=== PATIENT | male | born 1960 | race Caucasian/White ===

== ENCOUNTER 2017-12-13 07:24 | Emergency (ER) | payer OTHER ==
[2017-12-13 07:37] VITALS: BP 124/83
--- NOTE | 2017-12-13 08:16 | UC ---
Caesar Barker Gabriel, scribed for Phoebe Ray MD on 12/13/17 at 0748 . Lower Extremity/Ankle HPI - HPI Summary HPI Summary: This patient is a 57 year old M presenting to [facility] accompanied by his with a chief complaint of right sided dorsal foot pain that began 2 days ago and has gotten worse since. The patient rates the pain 8/10 in severity. Symptoms aggravated by even the slightest touch. Symptoms alleviated by nothing , pt has taken Tylenol with no relief. Pt reports mild swelling. Patient denies injury. 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 Takes ASA daily. Patients medication reviewed this visit. - History of Current Complaint Chief Complaint: UCLowerExtremity Stated Complaint: FOOT PAIN Hx Obtained From: Patient Onset/Duration: Still Present Severity Initially: Moderate Severity Currently: Moderate Pain Intensity: 8 Pain Scale Used: 0-10 Numeric Aggravating Factor(s): Other - any touch Alleviating Factor(s): Nothing Able to Bear Weight: Yes - Allergies/Home Medications Allergies/Adverse Reactions: Allergies Allergy/AdvReac Type Severity Reaction Status Date / Time No Known Allergies Allergy Verified 12/13/17 07:35 PMH/Surg Hx/FS Hx/Imm Hx Endocrine History: Diabetes Cardiovascular History: Cardiac Disease, Hypertension - Surgical History Surgical History: Yes Surgery Procedure, Year, and Place: STENT PLACED, CARPAL TUNNEL, WISDOM TEETH EXTRACTION - Family History Known Family History: Positive: Cardiac Disease, Diabetes - Social History Occupation: Employed Full-time Lives: With Family Alcohol Use: Weekly Substance Use Type: None Smoking Status (MU): Never Smoked Tobacco Review of Systems Constitutional: Negative - injury Skin: Other - mild swelling Musculoskeletal: Other: - dorsal right foot pain All Other Systems Reviewed And Are Negative: Yes Physical Exam Triage Information Reviewed: Yes Appearance: Well-Appearing, Well-Nourished, Pain Distress Vital Signs: Initial Vital Signs Temp 96.4 F 12/13/17 07:32 Pulse 64 12/13/17 07:32 Resp 18 12/13/17 07:32 BP 124/83 12/13/17 07:32 Pulse Ox 99 12/13/17 07:32 Vital Signs Reviewed: Yes Eye Exam: Normal Eyes: Positive: Conjunctiva Clear ENT Exam: Normal ENT: Positive: Normal ENT inspection, Hearing grossly normal, Pharynx normal, TMs normal Dental Exam: Normal Neck exam: Normal Neck: Positive: Supple Respiratory Exam: Normal Respiratory: Positive: Chest non-tender, Lungs clear, Normal breath sounds, No respiratory distress Cardiovascular Exam: Normal Cardiovascular: Positive: RRR, No Murmur, Pulses Normal, Other: - 2+ dp, pt CBT < 2 sec Abdominal Exam: Normal Abdomen Description: Positive: Nontender Bowel Sounds: Positive: Present Musculoskeletal: Positive: Other: - Pt wtih erythema, discomfort to gentle palp , pain with movement left 1st MSP No ankle, knee pain + flex/ext Neurological Exam: Normal Neurological: Positive: Alert Psychological Exam: Normal Skin: Positive: Other - erthema 1st MTP Lower Extremity Course/Dx - Course Course Of Treatment: Pt with progressive erythema and tenderness to left 1stMTP. Pain with gentle palp and movement. exam c/w gout. Will start colchicine, pred, indomenthavin. d/w pt precautions for po with med, increased risk of GIB. crutches. f/u with PCP. pt comfortable and in agreement with plan - Differential Dx/Diagnosis Provider Diagnoses: suspected gout flare 1st MTP Discharge - Sign-Out/Discharge Documenting (check all that apply): Discharge/Admit/Transfer - Discharge Plan Condition: Stable Disposition: HOME Prescriptions: Colchicine* [Colcrys*] 0.6 mg PO DAILY #10 tab Indomethacin CAP* [Indocin CAP*] 50 mg PO BID #14 cap methylPREDNISolone [Medrol Dosepak 4 MG*] 0 mg PO .SEE SALLIE INSTRUCTION #1 tab Patient Education Materials: Gout (ED) Forms: *Work Release Referrals: Grant Del Castillo MD [Primary Care Provider] - Additional Instructions: The doctor that evaluated you today thinks your symptoms are related to gout. You have blood work drawn today. This will take 1-2 days to come back. If there are any concerning finding, you will receive a call from a care front desk team member It is recommended you take medications as prescribed. It is VERY IMPORTANT you take all of these medications with food. They can be irritating to the stomach and can cause bleeding It is recommended you do not drink alcohol while taking these medications Use crutches if you are walking with a limp so you don't develop knee and hip pain from walking with limp contact your doctor today to schedule a follow-up appointment for next week contact your doctor or return with any questions or concerns - Billing Disposition and Condition Condition: STABLE Disposition: HOME The documentation as recorded by the Caesar garcia Gabriel accurately reflects the service I personally performed and the decisions made by me, Phoebe Ray MD.
[2017-12-13 11:10] LABS: EGFR Non-African American 98.2 (>60); Uric Acid 7.3 mg/dL (4.4-7.6)
== END 2017-12-13 08:30 | disposition home or self-care (01) ==
LOC: UCEAST 07:24
DX: M79.671 Pain in right foot (principal); M79.89 Other specified soft tissue disorders; E11.9 Type 2 diabetes mellitus without complications; Z79.84 Long term (current) use of oral hypoglycemic drugs; I11.9 Hypertensive heart disease without heart failure; Z95.5 Presence of coronary angioplasty implant and graft; Z79.82 Long term (current) use of aspirin
CPT/HCPCS: 36415; 80048; 84550; 99212; G0463

== ENCOUNTER 2018-07-02 07:08 | Emergency (ER) | payer OTHER ==
[2018-07-02] MEDS ORDERED: Fluorescein Sodium TOPICAL* 1 MG TEST STRIP OPHTHALMIC ONE (07:17)
[2018-07-02] MEDS ORDERED: Tetracaine 0.5% OPTH.SOL 15ML* BTL RIGHT EYE ONE (07:17)
[2018-07-02] MEDS ORDERED: Tetracaine 0.5% OPTH.SOL 4 ML* 1 DROP BTL ONE (07:23)
--- NOTE | 2018-07-02 07:43 | UC ---
Eye Complaint HPI - HPI Summary HPI Summary: 57-year-old male comes in with a chief complaint of right eye pain. Yesterday morning he gets stuck in the right eye with a stick. Had pain right away did not see any foreign body in the eye. This morning when woke up his eye was still hurting him. The light does bother the eye. When he does open the eyelid he said his vision is not greatly diminished. He does not wear glasses or contacts. - History of Current Complaint Chief Complaint: UCEye Stated Complaint: EYE INJURY Time Seen by Provider: 07/02/18 07:14 Pain Intensity: 8 - Allergies/Home Medications Allergies/Adverse Reactions: Allergies Allergy/AdvReac Type Severity Reaction Status Date / Time No Known Allergies Allergy Verified 07/02/18 07:20 Home Medications: Home Medications Aspirin 81 mg CHEW TAB* 1 tab PO DAILY 07/02/18 [History Confirmed 07/02/18] Losartan Potassium [Cozaar] 1 tab PO DAILY 07/02/18 [History Confirmed 07/02/18] Metoprolol Succinate XL TAB* [Toprol XL TAB*] 1 tab PO DAILY 07/02/18 [History Confirmed 07/02/18] PMH/Surg Hx/FS Hx/Imm Hx Cardiovascular History: Hypertension - Surgical History Surgical History: Yes Surgery Procedure, Year, and Place: STENT PLACED, CARPAL TUNNEL, WISDOM TEETH EXTRACTION - Family History Known Family History: Positive: Cardiac Disease, Diabetes - Social History Alcohol Use: Occasionally Substance Use Type: None Smoking Status (MU): Never Smoked Tobacco - Immunization History Most Recent Tetanus Shot: UNK Review of Systems All Other Systems Reviewed And Are Negative: Yes Constitutional: Positive: Negative Skin: Positive: Negative Eyes: Positive: Blurred Vision, Drainage, Eye Redness, Photophobia ENT: Positive: Negative Respiratory: Positive: Negative Cardiovascular: Positive: Negative Gastrointestinal: Positive: Negative Motor: Positive: Negative Neurovascular: Positive: Negative Musculoskeletal: Positive: Negative Neurological: Positive: Negative Psychological: Positive: Negative Is Patient Immunocompromised?: No Physical Exam Triage Information Reviewed: Yes Appearance: Well-Appearing, Well-Nourished, Pain Distress - mild Vital Signs: Initial Vital Signs Temp 97 F 07/02/18 07:14 Pulse 65 07/02/18 07:14 Resp 20 07/02/18 07:14 BP 163/100 07/02/18 07:14 Pulse Ox 97 11/26/18 07:14 Vital Signs Reviewed: Yes Eyes: Positive: Discharge, Other: - Examination with fluorescein examination and magnifying glass shows a 2 mm x 1 mm corneal abrasion over the iris just lateral to the pupil. I looked under the eyelids I did not see any foreign bodies. PERRLA EOMI. The right sided eyelids are swollen. When the patient was able to open his eye with the tetracaine he said his vision was almost normal. ENT: Positive: Nasal drainage Neck exam: Normal Neck: Positive: Supple Respiratory: Positive: No respiratory distress Musculoskeletal Exam: Normal Musculoskeletal: Positive: Strength Intact, ROM Intact Neurological Exam: Normal Neurological: Positive: Alert, Muscle Tone Normal Psychological Exam: Normal Psychological: Positive: Normal Response To Family, Age Appropriate Behavior Skin Exam: Normal Eye Complaint Course/Dx - Differential Dx/Diagnosis Provider Diagnoses: RIGHT EYE CORNEAL ABRASION Discharge - Sign-Out/Discharge Documenting (check all that apply): Patient Departure All imaging exams completed and their final reports reviewed: No Studies - Discharge Plan Condition: Stable Disposition: HOME Prescriptions: Tetracaine 0.5% OPTH.ALCIDES 15ML* [Tetracaine 0.5% OPTH.ALCIDES 15 ML*] 1 drop RIGHT EYE .SEE ORDER #1 btl Patient Education Materials: Corneal Abrasion (ED) Referrals: Grant Del Castillo MD [Primary Care Provider] - Dave Boyd MD [Medical Doctor] - Additional Instructions: FOLLOW UP WITH YOUR OPHTHALMOLOGY IF NOT COMPLETELY IMPROVED. GET RECHECKED FOR ANY WORSENING OF YOUR CONDITION OR QUESTIONS OR CONCERNS. - Billing Disposition and Condition Condition: STABLE Disposition: Home
[2018-07-02 07:47] VITALS: BP 158/88
== END 2018-07-02 07:47 | disposition home or self-care (01) ==
LOC: UCEAST 07:08
DX: S05.01XA Injury of conjunctiva and corneal abrasion without foreign body, right eye, initial encounter (principal); W22.8XXA Striking against or struck by other objects, initial encounter; Y92.9 Unspecified place or not applicable; I10 Essential (primary) hypertension
CPT/HCPCS: 99212; A9270-GY; G0463

== ENCOUNTER 2019-09-14 07:50 | Emergency (ER) | payer OTHER ==
[2019-09-14 08:01] VITALS: BP 155/80
--- NOTE | 2019-09-14 08:08 | UC ---
Knee Pain HPI - HPI Summary HPI Summary: CHIEF COMPLAINT: LEFT KNEE PAIN HPI: This patient presents with complaints of left knee discomfort. Patient denies any trauma or recent injuries but does report that 4 days ago he was painting on his knees without knee pads. Pain is localized to the lateral aspect of the left knee along the iliotibial tract. Pain is worse with extension, direct pressure and climbing stairs. pain is mild, but becomes moderate with ambulation and extension of the quadriceps. Patient denies fever, redness, prepatella swelling. Vital signs have been reviewed and are stable. The patient is afebrile and nontoxic appearing. The joint is not warm, erythematous, stiff or significantly swollen. VITAL SIGNS REVIEWED. NURSES NOTE REVIEWED. - History of Current Complaint Chief Complaint: UCLowerExtremity Stated Complaint: LEFT KNEE PAIN Time Seen by Provider: 09/14/19 08:02 Hx Obtained From: Patient Pain Intensity: 10 - Allergies/Home Medications Allergies/Adverse Reactions: Allergies Allergy/AdvReac Type Severity Reaction Status Date / Time No Known Allergies Allergy Verified 09/14/19 08:01 Home Medications: Home Medications Amlodipine Besylate [Norvasc] 5 mg PO DAILY WITH MEAL 09/14/19 [History Confirmed 09/14/19] PMH/Surg Hx/FS Hx/Imm Hx - Additional Past Medical History Additional PMH: PAST MEDICAL HISTORY- CHRONIC and RECURRENT HEALTH PROBLEM LIST REVIEWED. Information relevant to present complaint: . No previous knee injury VISIT HISTORY REVIEWED. MEDICATIONS & ALLERGIES REVIEWED. HYPERTENSION STATUS:taking antihypertensive medications FAMILY HISTORY: Positive for: cardiovascular disease, SOCIAL HISTORY: Smoker:. No Home:lives at home with his Employment:. Retired structural steel painter Previously Healthy: Yes - YES, THAT'S CORRECT Endocrine History: Diabetes Cardiovascular History: Cardiac Disease - ye, Myocardial Infarction - hat's corrects, - Surgical History Surgical History: Yes Surgery Procedure, Year, and Place: STENT PLACED, CARPAL TUNNEL, WISDOM TEETH EXTRACTION - Family History Known Family History: Positive: Cardiac Disease, Diabetes - Social History Occupation: Retired Alcohol Use: Occasionally Substance Use Type: None Smoking Status (MU): Former Smoker - Immunization History Most Recent Tetanus Shot: UNK Review of Systems All Other Systems Reviewed And Are Negative: Yes Constitutional: Positive: Negative Respiratory: Positive: Negative Cardiovascular: Positive: Negative Gastrointestinal: Positive: Negative Musculoskeletal: Positive: Edema - left knee lateral, Myalgia Neurological: Positive: Negative Is Patient Immunocompromised?: No Physical Exam - Summary Physical Exam Summary: Blood pressure is 155/80 Appearance: The patient is well-appearing, is in no pain or distress, and is well-nourished. Eyes: Conjunctiva are clear. Pupils are equal and reactive to light and accommodation. Extra ocular muscle movement is intact. ENT: The hearing is grossly normal, the pharynx is normal, and the TMs are normal. There is no muffled or hoarse voice. No stridor. Neck: The neck is supple and there is no lymphadenopathy. Respiratory: The chest is non-tender to palpation and without crepitus. The lungs are clear, there are normal breath sounds, and there is no respiratory distress. No wheezes, rales or rhonchi. Cardiovascular: Heart sounds reveal a regular rate and rhythm. There are no clicks, rubs or murmurs. There are no carotid bruits or thrills. Circulation is grossly intact. Abdomen: The abdomen is soft and nontender. There is no organomegaly. Bowel sounds are present and within normal limits. No point tenderness at McBurneys point. No CVA tenderness. Musculoskeletal: Strength is intact. The patient moves all extremities. Examination of the left knee shows mild swelling of the iliotibial tract. Distally just above the patella, there is discomfort to palpation. There is no evident prepatellar swelling or inflammation. The joint appears normal. There is no tenderness along the joint line. There is discomfort with extension of the quadriceps tendon. Neurological: The patient is alert. Motor and sensory are examination grossly intact. Speech is normal. Psychological: The patient displays age appropriate behavior, and is conversant. GCS=15. Skin: Negative for rashes. Triage Information Reviewed: Yes Vital Signs: Initial Vital Signs Temp 96.4 F 09/14/19 07:55 Pulse 69 09/14/19 07:55 Resp 18 09/14/19 07:55 BP 155/80 09/14/19 07:55 Pulse Ox 97 09/14/19 07:55 Vital Signs Reviewed: Yes Knee Pain Course/Dx - Course Course Of Treatment: This patient presents with complaints of left knee discomfort. Patient denies any trauma or recent injuries but does report that 4 days ago he was painting on his knees without knee pads. Pain is localized to the lateral aspect of the left knee along the iliotibial tract. Pain is worse with extension, direct pressure and climbing stairs. Patient denies fever, redness, prepatella swelling. Vital signs have been reviewed and are stable. The patient is afebrile and nontoxic appearing. The joint is not warm, erythematous, stiff or significantly swollen. I do not think this is a septic joint. On examination there is no significant evidence for fracture, dislocation, compartment syndrome , neurovascular compromise, obvious ligament, tendon, or soft tissue injury, Bakers cyst, soft tissue infection, vascular concerns such as DVT, or any other process requiring immediate specialty consultation, surgical intervention or additional testing at this time. I have recommended follow-up with an orthopedist for additional testing and consultation, as appropriate. An MRI may be indicated at some future time in the outpatient setting. It is understood that if the patient is not improving as expected or if other new symptoms or signs of concern develop, patient may need to be reevaluated. The patient understands the possibility of occult fracture that may not show up on the initial x-ray. The diagnosis, plan, expected course, follow-up, and return precautions were discussed and all questions were answered. Diagosis is quadriceps tendonitis, specifically of the iliotibial tract. This does not appear to be bursitis at this time. - Differential Dx/Diagnosis Differential Diagnosis/HQI/PQRI: Sprain, Strain, Tendonitis Provider Diagnosis: Quadriceps tendinitis Discharge ED - Sign-Out/Discharge Documenting (check all that apply): Patient Departure All imaging exams completed and their final reports reviewed: Yes - Discharge Plan Condition: Stable Disposition: HOME Referrals: Grant Del Castillo MD [Primary Care Provider] - Additional Instructions: WE DISCUSSED: PLEASE SEEK CARE AT THE EMERGENCY DEPARTMENT IF SYMPTOMS WORSEN OR IF NEW SYMPTOMS DEVELOP. FOLLOW UP WITH YOUR PRIMARY CARE PHYSICIAN IF CONDITION CONTINUES BEYOND 3 DAYS WITHOUT IMPROVEMENT. YOUR DIAGNOSIS IS: TENDONITIS OF THE TENDON COMING OVER THE KNEE CAP ON THE OUTSIDE OF YOUR LEFT KNEE YOUR PRESCRIPTION RECOMMENDATION IS: NONE OTHER INSTRUCTIONS: Hypertension Discharge Instructions: Your blood pressure reading today was 155/80, indicating HYPERTENSION. Follow- up with your primary care provider within 4 weeks for blood pressure check and appropriate recommendations and treatment, as needed. FOR PAIN AND/OR SLEEP: For pain: Ibuprofen (Motrin and other brand names) 400-600mg PLUS acetaminophen (Tylenol and other brand names) 500mg - 1000mg every 8 hours. FOR THE NEXT 2 DAYS, TAKE IBUPROFEN 600MG, 3 TIMES A DAY. THIS WILL HELP WITH INFLAMMATION OF THE TENDON. Other instructions: use richie, crutches; "if it hurts, don't do it;" warm moist heat to area for 10-15 minutes in the morning and 3-4 times a day. Ice for acute pain from using your knee. FOLLOW UP AT ANY TIME FOR INCREASED PAIN, REDNESS, SWELLING OR TEMPERATURE. THIS MIGHT MEAN AN INFECTION. FOLLOW UP WITH YOUR DOCTOR IF YOU ARE NOT IMPROVING IN 7 DAYS. - Billing Disposition and Condition Condition: STABLE Disposition: Home
== END 2019-09-14 08:58 | disposition home or self-care (01) ==
LOC: UCEAST 07:50
DX: M76.892 Other specified enthesopathies of left lower limb, excluding foot (principal); I10 Essential (primary) hypertension; E11.9 Type 2 diabetes mellitus without complications; Z79.899 Other long term (current) drug therapy; Z87.891 Personal history of nicotine dependence
CPT/HCPCS: 99213; G0463